=== PATIENT | male | born 1940 | race Caucasian/White ===

== ENCOUNTER 2016-11-01 12:49 | Outpatient (CLI) | payer MEDICARE ==
[2016-11-01 15:02] LABS: Anion Gap 15 mmol/L (10-20); BUN (Urea Nitrogen) 18 mg/dL (8.4-25.7); Calc. Creatinine Clearance 0 mL/min (70-130); Calcium 9.8 mg/dL (7.8-10.44); Carbon Dioxide 27 mmol/L (23-31); Chloride 107 mmol/L (98-107); Estimated GFR-MDRD 51; LDL Cholesterol, Calculated 82 mg/dL
[2016-11-01 15:39] LABS: Hemoglobin A1c 5.2 % (4.0-6.0)
[2016-11-01 16:23] LABS: #Basophils 0.1 thou/uL (0.0-0.2); #Eosinphils 0.2 thou/uL (0.0-0.7); #Lymphocytes 1.4 thou/uL (1.20-3.40); #Monocytes 0.4 thou/uL (0.11-0.59); #Neutrophils 4.2 thou/uL (1.40-6.50); %Basophils 0.8 % (0.0-1.0); %Eosinophils 3.5 % (0.0-10.0); %Lymphocytes 22.8 % (21.0-51.0); Hematocrit 51.8 % (42.0-52.0); Mean Platelet Volume 11.2 fL (7.4-10.4); Red Blood Cell (RBC) Count 5.57 mill/uL (4.70-6.10); White Blood Cell (WBC) Count 6.3 thou/uL (4.8-10.8)
== END 2016-11-01 12:50 ==
LOC: NAVSJIPCSP 12:49
PROVIDERS: ATTEND Nurse Practitioner Family
DX: I10 Essential (primary) hypertension (principal); F32.9 Major depressive disorder, single episode, unspecified; I25.10 Atherosclerotic heart disease of native coronary artery without angina pectoris; M19.90 Unspecified osteoarthritis, unspecified site; J30.9 Allergic rhinitis, unspecified; L98.9 Disorder of the skin and subcutaneous tissue, unspecified; Z79.899 Other long term (current) drug therapy
CPT/HCPCS: 36415; 80048; 80061; 83036; 85025

== ENCOUNTER 2017-03-07 11:11 | Outpatient (CLI) | payer MEDICARE ==
[2017-03-07 13:35] LABS: ALT (SGPT) 25 U/L (8-55); AST (SGOT) 33 U/L (5-34); Albumin 4.1 g/dL (3.4-4.8); Alkaline Phosphatase 48 U/L (40-150); Anion Gap 16 mmol/L (10-20); BUN (Urea Nitrogen) 25 mg/dL (8.4-25.7); Bilirubin, Direct 0.2 mg/dL (0.1-0.3); Bilirubin, Total 0.6 mg/dL (0.2-1.2); Calc. Creatinine Clearance 0 mL/min (70-130); Calcium 9.4 mg/dL (7.8-10.44); Carbon Dioxide 25 mmol/L (23-31); Cardiac Risk 3.7 (Less than 4.5); Chloride 105 mmol/L (98-107); Cholesterol 114 mg/dL (< 200 Desired); Estimated GFR-MDRD 47; Glucose 94 mg/dL (83-110); HDL Cholesterol 31 mg/dL (>60 Neg Risk); LDL Cholesterol, Calculated 63 mg/dL; Potassium 4.5 mmol/L (3.5-5.1); Protein, Total 6.2 g/dL (5.8-8.1); Sodium 141 mmol/L (136-145); Triglycerides 98 mg/dL (Less than 150)
[2017-03-07 13:56] LABS: PSA-Asymptomatic (SCREENING) 2.54 ng/mL (0-4.0); Thyroid Stimulating Hormone 2.3886 uIU/mL (0.35-4.94)
[2017-03-07 14:08] LABS: Hemoglobin A1c 5.2 % (4.0-6.0)
[2017-03-07 14:21] LABS: #Basophils 0.1 thou/uL (0.0-0.2); #Eosinphils 0.2 thou/uL (0.0-0.7); #Lymphocytes 1.4 thou/uL (1.20-3.40); #Monocytes 0.4 thou/uL (0.11-0.59); %Basophils 1.2 % (0.0-1.0); %Eosinophils 3.9 % (0.0-10.0); %Lymphocytes 26.7 % (21.0-51.0); %Monocytes 8.2 % (0.0-10.0); %Neutrophils 59.9 % (42.0-75.0); Hemoglobin 15.9 g/dL (14.0-18.0); Mean Corpuscular HGB CONC 33.6 g/dL (32.0-36.0); Mean Corpuscular Hemoglobin 30.2 pg (27.0-31.0); Mean Platelet Volume 10.1 fL (7.4-10.4); PLT Morphology Comment Appears Decreased; Platelet Count 99 thou/uL (130-400); RBC Distribution Width 12.3 % (11.5-14.5); Red Blood Cell (RBC) Count 5.26 mill/uL (4.70-6.10)
== END 2017-03-07 11:12 | disposition home or self-care (01) ==
LOC: NAVSJIPCSP 11:11
PROVIDERS: ATTEND Family Medicine
DX: I10 Essential (primary) hypertension (principal); F32.9 Major depressive disorder, single episode, unspecified; J30.9 Allergic rhinitis, unspecified; M19.90 Unspecified osteoarthritis, unspecified site; Z79.899 Other long term (current) drug therapy
CPT/HCPCS: 36415; 80048; 80061; 80076; 83036; 84443; 85025; G0103

== ENCOUNTER 2018-03-01 13:33 | Outpatient (CLI) | payer MEDICARE ==
--- NOTE | 2018-03-01 14:21 | RAD ---
LUMBAR SPINE RADIOGRAPH SERIES 3 VIEWS: CLINICAL HISTORY: Low back pain. FINDINGS: There is moderate multilevel degenerative change of the lumbar spine with mild retrolisthesis at L2-3 and L3-4. Prominent degenerative disk space narrowing with gas-vacuum phenomenon present at these l evels, as well. There is multilevel prominent marginal osteophytosis and end plate sclerosis. No ac frandy compression fracture. 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 There is atherosclerotic calcifi cation of the imaged aorta. Several densities of the pelvis indicate phleboliths. 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 POS: [facility]
== END 2018-03-01 13:34 | disposition home or self-care (01) ==
LOC: NAV RAD 13:33
PROVIDERS: ATTEND Family Medicine
DX: M54.5 Low back pain (principal); M47.896 Other spondylosis, lumbar region
CPT/HCPCS: 72100

== ENCOUNTER 2022-03-08 19:16 | Emergency (ER) | payer MEDICARE ==
[2022-03-08 20:09] LABS: #Monocytes 0.3 thou/uL (0.11-0.59); #Neutrophils 5.6 thou/uL (1.40-6.50); %Basophils 0.4 % (0.0-1.0); %Eosinophils 0.3 % (0.0-10.0); %Lymphocytes 14.2 % (21.0-51.0); %Monocytes 4.3 % (0.0-10.0); %Neutrophils 80.8 % (42.0-75.0); Hemoglobin 15.3 g/dL (14.0-18.0); Mean Corpuscular HGB CONC 32.5 g/dL (32.0-36.0); Mean Corpuscular Hemoglobin 29.7 pg (27.0-31.0); Mean Corpuscular Volume 91.3 fL (78.0-98.0); Mean Platelet Volume 10.5 fL (7.4-10.4); Platelet Count 124 thou/uL (130-400); RBC Distribution Width 12.1 % (11.5-14.5); Red Blood Cell (RBC) Count 5.17 mill/uL (4.70-6.10)
[2022-03-08 20:46] LABS: ALT (SGPT) 28 U/L (8-55); AST (SGOT) 33 U/L (5-34); Albumin 4.3 g/dL (3.4-4.8); Alkaline Phosphatase 43 U/L (40-110); Anion Gap 18 mmol/L (10-20); BUN (Urea Nitrogen) 15 mg/dL (8.4-25.7); Bilirubin, Total 0.8 mg/dL (0.2-1.2); Calc. Creatinine Clearance 0 mL/min (70-130); Calcium 11.1 mg/dL (7.8-10.44); Carbon Dioxide 24 mmol/L (23-31); Chloride 102 mmol/L (98-107); Globulin 2.7 g/dL (2.4-3.5); Glucose 117 mg/dL (83-110); Lipase 28 U/L (8-78); Potassium 3.7 mmol/L (3.5-5.1); Sodium 140 mmol/L (136-145)
== END 2022-03-08 21:09 | disposition home or self-care (01) ==
LOC: NAV ERS 19:16
DX: R53.81 Other malaise (principal); I10 Essential (primary) hypertension; E78.5 Hyperlipidemia, unspecified; K21.9 Gastro-esophageal reflux disease without esophagitis; Z79.899 Other long term (current) drug therapy
CPT/HCPCS: 80053; 83690; 85025; 99283

== ENCOUNTER 2023-05-03 08:18 | Emergency (ER) | payer MEDICARE ==
[2023-05-03 09:34] LABS: Hemoglobin 15.2 g/dL (14.0-18.0); Mean Corpuscular HGB CONC 33.2 g/dL (32.0-36.0); Mean Corpuscular Volume 90.5 fl (78.0-98.0); Platelet Count 88 10x3/uL (130-400); RBC Distribution Width 12.8 % (11.5-14.5); Red Blood Cell (RBC) Count 5.07 mill/uL (4.70-6.10); White Blood Cell (WBC) Count 5.4 10x3/uL (4.8-10.8)
[2023-05-03 09:35] LABS: #Eosinphils 0.1 thou/uL (0.0-0.7); #Lymphocytes 1.1 thou/uL (1.20-3.40); #Monocytes 0.4 thou/uL (0.11-0.59); #Neutrophils 3.8 thou/uL (1.40-6.50); %Basophils 0.8 % (0.0-1.0); %Eosinophils 1.5 % (0.0-10.0); %Monocytes 7.1 % (0.0-10.0); %Neutrophils 70.7 % (42.0-75.0); Manual Diff?? NO; Mean Platelet Volume 9.3 fL (7.4-10.4); RBC Morph Comment Within Normal Limits
[2023-05-03 09:36] LABS: Platelet Adequacy Comment Appears Decreased
[2023-05-03] MEDS ORDERED: Sodium Chloride 0.9% 1,000 ML ONE (09:40)
[2023-05-03 09:44] LABS: ALT (SGPT) 24 U/L (8-55); AST (SGOT) 27 U/L (5-34); Alkaline Phosphatase 47 U/L (40-110); Anion Gap 14 mmol/L (10-20); BUN (Urea Nitrogen) 15 mg/dL (8.4-25.7); Bilirubin, Total 0.7 mg/dL (0.2-1.2); Calc. Creatinine Clearance 0 mL/min (70-130); Calcium 9.9 mg/dL (7.8-10.44); Carbon Dioxide 23 mmol/L (23-31); Chloride 104 mmol/L (98-107); Estimated GFR 51; Globulin 2.2 g/dL (2.4-3.5); Glucose 135 mg/dL (83-110); Potassium 3.6 mmol/L (3.5-5.1); Protein, Total 6.2 g/dL (5.8-8.1); Sodium 137 mmol/L (136-145)
[2023-05-03 10:22] LABS: Bilirubin Negative (Negative); Blood, Urine Negative (Negative); Clarity Clear (Clear); Glucose, Urine (Dipstick) Negative (Negative); Ketone, Urine Negative (Negative); Leukocyte Negative (Negative); Nitrite Negative (Negative); Protein, Urine (Dipstick) Negative (Neg-Trace); Urobilinogen 0.2 mg/dL (Less than 2)
[2023-05-03 10:38] LABS: Squamous Epithelial 0-3 HPF (0-3)
[2023-05-03] MEDS ORDERED: Ondansetron PF 4 MG/2 ML Vial ONE (10:49)
[2023-05-03] MEDS ORDERED: Lisinopril 10 MG TAB ONE (12:19)
== END 2023-05-03 12:37 | disposition home or self-care (01) ==
LOC: NAV ERS 08:18
DX: I10 Essential (primary) hypertension (principal); N40.0 Benign prostatic hyperplasia without lower urinary tract symptoms; K59.00 Constipation, unspecified; K57.90 Diverticulosis of intestine, part unspecified, without perforation or abscess without bleeding; N28.1 Cyst of kidney, acquired; Z79.899 Other long term (current) drug therapy
CPT/HCPCS: 74177; 80053; 81001; 82274; 83880; 84484; 85025; 93005; 96374; J2405; J7050

== ENCOUNTER 2023-06-15 07:37 | Emergency (ER) | payer MEDICARE, OTHER ==
[2023-06-15 08:51] LABS: #Basophils 0.1 thou/uL (0.0-0.2); #Eosinphils 0.1 thou/uL (0.0-0.7); #Lymphocytes 1.6 thou/uL (1.20-3.40); #Monocytes 0.5 thou/uL (0.11-0.59); #Neutrophils 3.9 thou/uL (1.40-6.50); %Basophils 0.9 % (0.0-1.0); %Eosinophils 1.8 % (0.0-10.0); %Lymphocytes 26.1 % (21.0-51.0); %Monocytes 7.9 % (0.0-10.0); %Neutrophils 63.4 % (42.0-75.0); Hematocrit 41.2 % (42.0-52.0); Hemoglobin 14.2 g/dL (14.0-18.0); Mean Corpuscular HGB CONC 34.4 g/dL (32.0-36.0); Mean Corpuscular Hemoglobin 30.7 pg (27.0-31.0); Mean Corpuscular Volume 89.2 fl (78.0-98.0); Mean Platelet Volume 8.5 fL (7.4-10.4); Platelet Count 100 10x3/uL (130-400); RBC Distribution Width 12.4 % (11.5-14.5); Red Blood Cell (RBC) Count 4.62 mill/uL (4.70-6.10)
[2023-06-15 09:00] LABS: ALT (SGPT) 26 U/L (8-55); AST (SGOT) 29 U/L (5-34); Albumin 4.1 g/dL (3.4-4.8); Alkaline Phosphatase 56 U/L (40-110); Anion Gap 14 mmol/L (10-20); BUN (Urea Nitrogen) 19 mg/dL (8.4-25.7); Bilirubin, Total 0.6 mg/dL (0.2-1.2); Calc. Creatinine Clearance 0 mL/min (70-130); Carbon Dioxide 21 mmol/L (23-31); Chloride 108 mmol/L (98-107); Estimated GFR 51; Globulin 2.2 g/dL (2.4-3.5); Glucose 115 mg/dL (83-110); Potassium 3.7 mmol/L (3.5-5.1); Protein, Total 6.3 g/dL (5.8-8.1); Sodium 139 mmol/L (136-145)
[2023-06-15 09:03] LABS: Troponin I 0.029 ng/mL (< 0.028)
[2023-06-15 09:19] LABS: White Blood Cell (WBC) Count 6.2 10x3/uL (4.8-10.8)
[2023-06-15 11:22] LABS: Troponin I 0.017 ng/mL (< 0.028)
== END 2023-06-15 11:50 | disposition home or self-care (01) ==
LOC: NAV ERS 07:37
DX: I10 Essential (primary) hypertension (principal); R22.43 Localized swelling, mass and lump, lower limb, bilateral; K21.9 Gastro-esophageal reflux disease without esophagitis; E78.5 Hyperlipidemia, unspecified; Z79.899 Other long term (current) drug therapy
CPT/HCPCS: 71046; 80053; 83880; 84484; 85025; 93005

== ENCOUNTER 2025-05-29 08:13 | Emergency (ER) | payer OTHER ==
[2025-05-29] MEDS ORDERED: Aspirin Chewable 81 MG TAB ONE (08:43)
[2025-05-29] MEDS ORDERED: Nitroglycerin 0.4 MG TAB 1 EACH ONE (08:44)
[2025-05-29 09:23] LABS: %Eosinophils 2.6 % (0.0-10.0); %Lymphocytes 23.9 % (21.0-51.0); %Monocytes 7.6 % (0.0-10.0); %Neutrophils 64.8 % (42.0-75.0); Hematocrit 47.6 % (42.0-52.0); Hemoglobin 16.2 g/dL (14.0-18.0); Manual Diff?? NO; Mean Corpuscular Hemoglobin 30.7 pg (27.0-31.0); Mean Corpuscular Volume 90.3 fl (78.0-98.0); Platelet Count 98 10x3/uL (130-400); Red Blood Cell (RBC) Count 5.27 mill/uL (4.70-6.10); White Blood Cell (WBC) Count 5.2 10x3/uL (4.8-10.8)
[2025-05-29 09:24] LABS: #Basophils 0.1 thou/uL (0.0-0.2); #Eosinophils 0.1 thou/uL (0.0-0.7); #Lymphocytes 1.2 thou/uL (1.20-3.40); #Monocytes 0.4 thou/uL (0.11-0.59); #Neutrophils 3.4 thou/uL (1.40-6.50); %Basophils 1.1 % (0.0-1.0)
[2025-05-29 09:33] LABS: Troponin I 0.027 ng/mL (< 0.028)
[2025-05-29 09:50] LABS: ALT (SGPT) 35 U/L (Less than 45); AST (SGOT) 35 U/L (11-34); Albumin 4.1 g/dL (3.1-4.5); Alkaline Phosphatase 60 U/L (40-110); Anion Gap 11 mmol/L (10-20); BUN (Urea Nitrogen) 17 mg/dL (8.4-25.7); Bilirubin, Total 0.6 mg/dL (0.3-1.2); Calc. Creatinine Clearance 0 mL/min (70-130); Carbon Dioxide 25 mmol/L (23-31); Chloride 107 mmol/L (98-107); Globulin 2.3 g/dL (2.4-3.5); Glucose 116 mg/dL (83-110); Potassium 4.1 mmol/L (3.5-5.1); Sodium 139 mmol/L (136-145)
[2025-05-29 09:56] LABS: Calcium 9.9 mg/dL (7.6-10.4)
== END 2025-05-29 11:44 | disposition short-term general hospital (02) ==
LOC: NAV ERS 08:13
DX: R07.89 Other chest pain (principal); I12.9 Hypertensive chronic kidney disease with stage 1 through stage 4 chronic kidney disease, or unspecified chronic kidney disease; N18.30 Chronic kidney disease, stage 3 unspecified; K21.9 Gastro-esophageal reflux disease without esophagitis; E78.5 Hyperlipidemia, unspecified; I25.10 Atherosclerotic heart disease of native coronary artery without angina pectoris; Z79.899 Other long term (current) drug therapy
CPT/HCPCS: 71046; 80053; 83880; 84484; 85025; 93005; 94760